=== PATIENT | female | born 1995 | race Caucasian/White ===

== ENCOUNTER 2017-11-09 18:06 | Emergency (ER) | payer MEDICAID ==
--- NOTE | 2017-11-09 18:42 | EDPHY ---
H & P Smoking Status: Never smoked Time Seen by Provider: 11/09/17 18:29 HPI/ROS: CHIEF COMPLAINT: Right inferior breast pain HISTORY OF PRESENT ILLNESS: 22-year-old female currently breast-feeding her 15- month-old child, complaining of right inferior breast pain since this morning. No trauma. No discoloration. She has been able to express milk from this but does note that her son prefers the left breast. No fever or chills. No flu- like symptoms. No erythema. No foul smell from her nipple. No abdominal pain. She also notes incidentally that she has been experiencing an acute on chronic migraine which feels similar to her chronic headaches. Not thunderclap. No neurologic deficits but does note photophobia, nausea. No vomiting. PRIMARY CARE PROVIDER: None REVIEW OF SYSTEMS: 10 systems reviewed and negative with the exception of the elements mentioned in the history of present illness PAST MEDICAL & SURGICAL HISTORY: Currently breast-feeding. SOCIAL HISTORY:Nonsmoker PHYSICAL EXAM (Prior to examination, patient consented to physical exam, hands were washed and my usual and customary physical exam procedures followed) 1) GENERAL: Well-developed, well-nourished, alert and oriented. Appears anxious , crying, hyperventilating. 2) HEAD: Normocephalic, atraumatic 3) HEENT: Pupils equal, round, reactive to light bilaterally. Sclera anicteric. 4) NECK: Full range of motion, no meningeal signs. 5) LUNGS: Breast examination with female nurse Olga Lidia at bedside reveals bilaterally normal appearing breast with is no discharge, no discoloration, no erythema, no induration, no orange peel appearance. She is tender to palpation right breast approximately 7:00 position with no palpable abnormality beyond pain. Clear auscultation bilaterally, no wheezes, no rhonchi, no retractions. 6) HEART: Regular rate and rhythm, no murmur, no heave, no gallop. 7) ABDOMEN: No guarding, no rebound, no focal tenderness, negative McBurney's, negative Moore's, negative Rovsing's, negative peritoneal sign, 8) MUSCULOSKELETAL: No axillary adenopathy bilaterally. No axillary tenderness. Normal color and temperature bilateral upper extremities. Moving all extremities, no focal areas of tenderness, no obvious trauma. No peripheral edema or discoloration. 9) BACK: No CVA tenderness, no midline vertebral tenderness, no fluctuance, no step-off, no obvious trauma, no visual or palpable abnormality. 10) SKIN: No rash, no petechiae. 11) Psychiatric: Patient is oriented X 3, there is no agitation. DIFFERENTIAL DIAGNOSIS: In no particular order including but not limited to clogged ducts, mastitis, breast abscess (Brielle Dick) Constitutional: Initial Vital Signs Temperature (C) 36.9 C 11/09/17 18:10 Heart Rate 99 11/09/17 18:10 Respiratory Rate 18 11/09/17 18:10 Blood Pressure 98/68 L 11/09/17 18:10 O2 Sat (%) 98 11/09/17 18:10 O2 Delivery Mode Room Air Allergies/Adverse Reactions: amoxicillin Allergy (Severe, Verified 11/09/17 18:11) throat closes up Home Medications: Medication Instructions Recorded NK [No Known Home Meds] 11/09/17 MDM/Departure - MDM Imaging Results: Imaging Impressions Breast Ultrasound 11/09/17 18:37 Impression: 1. Negative right breast ultrasound examination. Results called to Rajendra Dick PA-C, at 7:35 PM. Images reviewed myself (Brielle iDck) Medications Given: Discontinued Medications Ibuprofen (Motrin) 800 mg PO EDNOW ONE Stop: 11/09/17 19:09 Last Admin: 11/09/17 19:56 Dose: 800 mg ED Course/Re-evaluation: The patient was evaluated and managed by the physician's automobile mechanic assistant. My cosignature indicates that I reviewed the chart and I agree with the findings and plan of care as documented. I am the secondary supervising physician. ( Nina Medina) 6:40 p.m.: Clinically no evidence of mastitis. She is tender to palpation approximately 7:00 position of the right breast. Will obtain ultrasound to evaluate deep space infection. Discussed possibility of clogged ducts. 7:20 p.m.: Informed by nursing staff the patient walked out of the emergency department without informing staff. Her ultrasound has not been interpreted yet. 7:49 p.m.: Informed by nursing staff the patient had not left permanently, had only the left the ER to breast feed her child in the parking lot. I evaluated the patient at this time. Discussed the imaging results. She appears anxious at this time. She previously denied any urinary abnormality but states that this time she has been experiencing increased frequency and dysuria. Will obtain urinalysis. 8:58 p.m.: Patient has provided urine which is negative for bacteria or pyuria. Plan will be discharge. Regarding her breast recommended ibuprofen, warm compresses, close follow-up, given usual and customary skin, breast precautions. She feels comfortable being discharged. All questions and concerns addressed by myself. (Brielle Dick) - Depart Disposition: Home, Routine, Self-Care Clinical Impression: Breast pain, right Condition: Good Instructions: and Nipple Soreness (ED), and Breast Engorgement (ED) Additional Instructions: Place warm compresses on your breast. Return to the ER if you develop redness, pain with breast feeding or any other symptoms that concern you. Referrals: [facility],. [Clinic] - 1-2 days without fail Spencer Casey MD [Medical Doctor] - 1-2 days without fail
[2017-11-09] MEDS ORDERED: IBUPROFEN 800 MG TAB PO ONE (19:08)
[2017-11-09 21:34] VITALS: BP 101/68
== END 2017-11-09 21:36 | disposition home or self-care (01) ==
DX: N64.4 Mastodynia (principal)